=== PATIENT | female | born 1950 | race Caucasian/White ===

== ENCOUNTER 2020-10-21 11:51 | Outpatient (CLI) | payer MEDICARE, SELFPAY ==
[2020-10-21 12:18] LABS: Basophils Absolute Auto 0.1 K/mm3 (0.0-0.1); Basophils Percent Auto 0.5 % (0.2-1.2); Eosinophils Absolute Auto 0.3 K/mm3 (0-0.3); Eosinophils Percent Auto 2.6 % (0-4.4); Hematocrit 35.5 % (37.0-47.0); Hemoglobin 11.8 g/dL (12.0-15.0); Immature Granulocyte Absolute 0.03 K/mm3 (0.00-0.031); Immature Granulocyte Percent A 0.3 % (0-0.5); Lymphocytes Absolute Auto 3.32 K/mm3 (0.9-3.2); Lymphocytes Percent Auto 31.1 % (18.3-44.2); Mean Corpuscular HGB Conc 33.2 g/dl (32-36); Mean Corpuscular Hemoglobin 32.4 pg (26-34); Mean Corpuscular Volume 97.5 fl (80-100); Mean Platelet Volume 12.1 fl (7.4-10.4); Monocytes Absolute Auto 1.1 K/mm3 (0.1-0.6); Monocytes Percent Auto 9.8 % (2.6-8.5); Neutrophils Percent Auto 55.7 % (45.5-73.1); Platelet Count Result 183 k/mm3 (150-375); Red Blood Count 3.64 M/mm3 (4.2-5.4); Red Cell Distribution Width 12.7 % (11.5-14.5); White Blood Count 10.7 K/mm3 (4.5-10.0)
[2020-10-21 12:32] LABS: Alanine Aminotransferase 11 U/L (4-35); Alkaline Phosphatase 60 U/L (38-126); Anion Gap 6 mmol/L (8-16); Aspartate Amino Transferase 22 U/L (14-36); Bilirubin,Total 0.5 mg/dL (0.2-1.3); Blood Urea Nitrogen 16 mg/dL (7-17); Calcium 9.9 mg/dL (8.4-10.2); Carbon Dioxide 31 mmol/L (22-30); Chloride 104 mmol/L (98-107); Estimated Glomerular Filt Rate 55; Glucose 193 mg/dL (65-105); Potassium 4.3 mmol/L (3.4-5.0); Sodium 141 mmol/L (137-145)
[2020-10-21 12:34] LABS: D Dimer 0.53 ug/mL (<0.48)
== END 2020-10-21 11:52 | disposition home or self-care (01) ==
PROVIDERS: PCP Internal Medicine; Visit Provider Internal Medicine
DX: R06.02 Shortness of breath (principal); R07.9 Chest pain, unspecified
CPT/HCPCS: 36415; 80053; 85025; 85380

== ENCOUNTER 2021-01-07 14:29 | Outpatient (CLI) | payer MEDICARE, SELFPAY ==
--- NOTE | ~2021-01-07 | MM_ITS ---
EXAMINATION: MM screening marcelino BI w roberta HISTORY: Screening mammogram TECHNIQUE: Craniocaudal and mediolateral oblique 3-D tomosynthesis images were obtained and synthetic 2-D images were generated. CAD analysis was submitted and interpreted. COMPARISON: No prior mammogram is available for comparison at this institution. BREAST PARENCHYMAL COMPOSITION: The breasts are heterogeneously dense, which may obscure small masses . FINDINGS: There is no evidence of suspicious mass, calcification, or architectural distortion to sugg est malignancy in either breast. There has been no suspicious interval change. IMPRESSION: 1. No mammographic evidence of malignancy. 2. Recommend routine screening mammography in one year. BI-RADS Category 1: Negative Reviewed, dictated and finalized at location A.
--- NOTE | ~2021-01-07 | DEXA_ITS ---
Bone Density Report Name: Lesley Whiting Age: 70 Sex: Female Ethnicity: White Date of : 1950 Indication: postmenopausal; height loss; prior fracture; hysterectomy; Referring Provider: PETE, MATHEW Sharif Study: Bone densitometry was performed. Exam Date: January 07, 2021 Accession number: [id number] Bone Density: Region BMD T-score Z-score Classification Femoral Neck (Left) 0.717 -1.2 0.5 Osteopenia Total Hip (Left) 0.809 -1.1 0.3 Osteopenia Total Hip Bilateral Avg 0.814 -1.1 0.4 Osteopenia Femoral Neck (Right) 0.688 -1.5 0.3 Osteopenia Total Hip (Right) 0.818 -1.0 0.4 Normal World Health Organization criteria for BMD impression classify patients as: Normal (T-score at or above -1.0), Osteopenia (T-score between -1.0 and -2.5), or Osteoporosis (T-score at or below -2.5). 10-year Fracture Risk(1): Major Osteoporotic Fracture 14% Hip Fracture 1.6% Reported Risk Factors: [place] (), Neck BMD=0.688, BMI=37.2, previous fracture (1) FRAX(R) Version 3.08. Fracture probability calculated for an untreated patient. Fracture probability may be lower if the patient has received treatment. Clinical Information Provided by Patient: Has had a low trauma fracture Has used the following medications: Vitamin D, Calcium Has the following medical conditions: Hysterectomy Patient maximum height was 64 Menopause Age: 28 Drinks caffeinated beverages Onset of menses at age 14 Number of children 2 Impression: The patient has low bone mass, based on the Right Femoral Neck T-score. The patient has an estimated ten-year risk of hip fracture of 1.6% and an estimated ten-year risk of major fracture of 14%, based on the WHO FRAX algorithm. The patient has risk factors, including: previous fracture. Discussion: BONE DENSITY IS LOW AT ONE OR MORE SKELETAL SITES. This patient's lowest T-score is low at one or more skeletal sites. It meets the World Health Organization's (WHO) criteria for ?low bone mass? (T-score between -1.0 and -2.5). The patient's 10-year risk of fracture as calculated by FRAX is less than the threshold where pharmacological therapy is recommended by the National Osteoporosis Foundation (NOF). However, all treatment decisions require clinical judgment and consideration of individual patient factors, including patient preferences, comorbidities, previous drug use, risk factors not captured in the FRAX model (e.g., frailty, falls, vitamin D deficiency, increased bone turnover, interval significant decline in bone density) and possible under or overestimation of fracture risk by FRAX. The patient should follow a healthful lifestyle (good nutrition with adequate calcium and vitamin D, and appropriate weight-bearing exercise). Follow-Up: Consider repeating this study in 2 to 3 years to reassess this patient's status,
== END 2021-01-07 14:30 | disposition home or self-care (01) ==
LOC: ANHIMG 14:39
PROVIDERS: PCP Internal Medicine; Visit Provider Internal Medicine
DX: Z12.31 Encounter for screening mammogram for malignant neoplasm of breast (principal); Z78.0 Asymptomatic menopausal state; M85.88 Other specified disorders of bone density and structure, other site; M85.852 Other specified disorders of bone density and structure, left thigh; M85.851 Other specified disorders of bone density and structure, right thigh
CPT/HCPCS: 77063; 77067; 77080

== ENCOUNTER 2024-05-21 15:30 | Outpatient (CLI) | payer MEDICARE, SELFPAY ==
--- NOTE | ~2024-05-21 | CT_ITS ---
EXAMINATION: CT IAC/mastoids BI wo con DATE: 05/21/2024 16:30 INDICATION: Chronic eczematoid right ear. TECHNIQUE: Computed tomography (CT) of the temporal bones was performed without intravenous contrast. Automated exposure control and iterative reconstruction technique were employed. The dose-length pro duct was 272.31 mGy-cm. COMPARISON: Head CT 08/27/2016 FINDINGS: RIGHT TEMPORAL BONE: The internal auditory canal, cochlea, vestibule, semicircular canals, vestibular aqueduct, carotid ca nal, jugular bulb, facial nerve course, ossicles, scutum, Prussak space, and tympanic membrane are no rmal. There is a right mastoid effusion. There is a 1.6 x 1.2 cm aggressive lytic lesion involving th e right mastoid air cells and right external auditory canal. There are calcifications within the lesi on. LEFT TEMPORAL BONE: The internal auditory canal, cochlea, vestibule, vestibular aqueduct, carotid canal are normal. There is a high riding jugular bulb. The facial nerve course, ossicles, tympanic membrane, scutum, Prussak space, external artery canal, and mastoid air cells are normal. IMPRESSION: 1. 1.6 cm aggressive lytic lesion involving the right mastoid air cells and right external auditory c anal suspicious for chondrosarcoma versus metastatic disease. Reviewed, dictated and finalized at location A. IMPRESSION: 1. 1.6 cm aggressive lytic lesion involving the right mastoid air cells and rig ht external auditory canal suspicious for chondrosarcoma versus metastatic dise ase.
== END 2024-05-21 15:31 | disposition home or self-care (01) ==
PROVIDERS: PCP Internal Medicine; Visit Provider Otolaryngology
DX: H60.8X1 Other otitis externa, right ear (principal)
CPT/HCPCS: 70480

== ENCOUNTER 2024-06-15 12:55 | Outpatient (CLI) | payer MEDICARE, SELFPAY ==
--- NOTE | ~2024-06-15 | MM_ITS ---
EXAMINATION: MM screening marcelino BI w roberta HISTORY: Screening mammogram TECHNIQUE: Craniocaudal and mediolateral oblique 3-D tomosynthesis images were obtained and synthetic 2-D images were generated. CAD analysis was submitted and interpreted. COMPARISON: 01/07/2021 BREAST PARENCHYMAL COMPOSITION:Dense: The breasts are extremely dense, which lowers the sensitivity o f mammography. FINDINGS: No suspicious mass, calcification, or architectural distortion are identified in either maria antonia ast to suggest malignancy. There has been no suspicious interval change. IMPRESSION: No mammographic evidence of malignancy. Recommend routine screening mammography in one year. BI-RADS Category 1: Negative Reviewed, dictated and finalized at location M. [employer]
== END 2024-06-15 12:56 | disposition home or self-care (01) ==
PROVIDERS: PCP Internal Medicine; Visit Provider Internal Medicine
DX: Z12.31 Encounter for screening mammogram for malignant neoplasm of breast (principal)
CPT/HCPCS: 77063; 77067